=== PATIENT | male | born 1980 | race African-American/Black ===

== ENCOUNTER 2018-04-22 08:46 | Emergency (ER) | payer MEDICAID ==
[~2018-04-22] VITALS: Ht 175.3 cm; Wt 96.0 kg
[2018-04-22] MEDS ORDERED: CefTRIAXone 250MG IM Kit w/LIDOcaine IM ONE (09:10)
[2018-04-22] MEDS ORDERED: azithromycin 250mg tablet PO ONE (09:10)
[2018-04-22] MEDS ORDERED: DOXY100C43 PO (09:14)
[2018-04-22 10:02] VITALS: BP 136/76
== END 2018-04-22 10:32 | disposition home or self-care (01) ==
LOC: ER 08:46
DX: N34.2 Other urethritis (principal); N45.1 Epididymitis; Z79.899 Other long term (current) drug therapy
CPT/HCPCS: 36415; 87491; 87591; 96372; 99283; J0696

== ENCOUNTER 2019-04-30 06:39 | Emergency (ER) | payer MEDICAID ==
[~2019-04-30] VITALS: Ht 172.7 cm; Wt 89.9 kg
[2019-04-30 06:42] VITALS: BP 112/91
[2019-04-30] MEDS ORDERED: TETRACAINE 0.5% 4 ML OPHTHALMIC DROPS RIGHTEYE ONE (07:10)
[2019-04-30] MEDS ORDERED: proparacaine 0.5% ophthalmic drops 15ml RIGHTEYE ONE (07:40)
[2019-04-30] MEDS ORDERED: ERYT1OIN6 RIGHTEYE (07:58)
[2019-04-30] MEDS ORDERED: TETanus/Pertussis (Acell)/Diphther VAC/PF (Tdap-Adult) 0.5ml syringe IM ONE (08:00)
== END 2019-04-30 08:24 | disposition home or self-care (01) ==
LOC: ER 06:40
DX: S05.01XA Injury of conjunctiva and corneal abrasion without foreign body, right eye, initial encounter (principal); H10.31 Unspecified acute conjunctivitis, right eye; H57.11 Ocular pain, right eye; X58.XXXA Exposure to other specified factors, initial encounter; Y93.89 Activity, other specified; Y92.89 Other specified places as the place of occurrence of the external cause; Y99.8 Other external cause status
CPT/HCPCS: 90471; 90715; 99283